=== PATIENT | female | born 1995 | race Caucasian/White ===

== ENCOUNTER 2017-07-07 17:22 | Emergency (ER) | payer OTHER ==
[2017-07-07 17:43] VITALS: BP 121/58
--- NOTE | 2017-07-07 18:40 | UC ---
Breast Complaint - HPI Summary HPI Summary: Pt presents with c/o firm, moveable mass in right breast. Pt reports that she was taking a shower two hours ago and felt a large, firm, moveable, non tender mass in right breast at 7 - 8 o'clock position. Pt denies any injury or FMH breast cancer. Pt is on BCP, denies sexual activity and is due to have menstrual cycle begin in 2 days. - History of Current Complaint Hx Obtained From: Patient Breast Chief Complaint: Right, Palpable Lump Timing: Constant Breast Pain Radiates To: Right Breast Pain Aggravating Factors: Palpation Breast Pain Alleviating Factors: Nothing Breast Associated Signs/Symptoms: Nodule/Mass - right side large, non tender moveable 7-8 o'clock position - Allergy/Home Medications Allergies/Adverse Reactions: Allergies Allergy/AdvReac Type Severity Reaction Status Date / Time Penicillins [PCN] Allergy Rash Verified 07/07/17 17:39 Home Medications: Home Medications Eth Estradiol/Drospirenone(NF) [Petra 28(NF)] 1 tab PO DAILY 07/07/17 [History Confirmed 07/07/17] PMH/Surg Hx/FS Hx/Imm Hx Previously Healthy: Yes - Surgical History Surgical History: None - Family History Known Family History: Positive: Cardiac Disease - Social History Occupation: Student Lives: Dormitory/Roommates Alcohol Use: None Substance Use Type: None Smoking Status (MU): Never Smoked Tobacco Have You Smoked in the Last Year: No Review of Systems Constitutional: Negative Skin: Negative - tender, firm moveable mass in rigth breast, Other Eyes: Negative ENT: Negative Respiratory: Negative Cardiovascular: Negative Gastrointestinal: Negative Genitourinary: Negative Motor: Negative Neurovascular: Negative Musculoskeletal: Negative Neurological: Negative Psychological: Negative Is Patient Immunocompromised?: No All Other Systems Reviewed And Are Negative: Yes Physical Exam Triage Information Reviewed: Yes Appearance: Well-Appearing Vital Signs: Initial Vital Signs Temp 98.5 F 07/07/17 17:40 Pulse 81 07/07/17 17:40 Resp 16 07/07/17 17:40 BP 121/58 07/07/17 17:40 Pulse Ox 100 07/07/17 17:40 Vital Signs Reviewed: Yes Eye Exam: Normal ENT Exam: Normal Dental Exam: Normal Neck exam: Normal Respiratory Exam: Normal Cardiovascular Exam: Normal Abdominal Exam: Normal Musculoskeletal Exam: Normal Neurological Exam: Normal Psychological Exam: Normal Skin Exam: Other - 4 cm X 2 cm moaveable mass in right breast, non tender, firm mass elongated shape, right breast, 7-8 o'clock position Breast Pain Course/Dx - Course Assessment/Plan: I discussed with the pt the need to follow up her PCP and she requested a local provider. I referred her to a [facility] surgeon as requested. - Differential Diagnoses Differential Diagnosis/HQI/PQRI: Breast Mass - Diagnoses Provider Diagnoses: Breast mass, right Is Visit Related: No Discharge - Discharge Plan Condition: Stable Disposition: HOME Patient Education Materials: Breast Mass (ED) Referrals: [facility] [Outside] Christoph Palmer [Medical Doctor] - Non Staff,Doctor [Primary Care Provider] - If Needed Additional Instructions: Please follow up with your pCP or return to clinic as needed. We have provided a referral to a [facility] provider as you have requested. Please follow up as soon as possible.
== END 2017-07-07 18:50 | disposition home or self-care (01) ==
LOC: UCCORT 17:22
DX: N63.10 Unspecified lump in the right breast, unspecified quadrant (principal); Z88.0 Allergy status to penicillin
CPT/HCPCS: 99201; G0463

== ENCOUNTER 2017-12-11 15:23 | Emergency (ER) | payer OTHER ==
[2017-12-11 15:55] VITALS: BP 130/58
--- NOTE | 2017-12-11 16:04 | UC ---
Respiratory Complaint HPI - HPI Summary HPI Summary: pt c/o a cough for 1 month. tx by irina kidd with cough medication without relief. while home on break, went to her pcp around 11/21/17. whom tx with nebulizer, inhaler and steroid which helped; however, continues to cough and now L side of ribs hurt. no f/c's or sob. +wheezing. completed the steroid and left the neb at home. denies calf pain or swelling. immunizations are utd. - History of Current Complaint Chief Complaint: UCRespiratory Stated Complaint: COUGH/LFT SIDE RIB AREA PAIN Time Seen by Provider: 12/11/17 15:57 Hx Obtained From: Patient Hx Last Menstrual Period: 11/16 Onset/Duration: Gradual Onset Timing: Constant Pain Intensity: 5 - Risk Factors Cardiac Risk Factors: Negative Pseudomonas Risk Factors: Negative Tuberculosis Risk Factors: Negative - Allergies/Home Medications Allergies/Adverse Reactions: Allergies Allergy/AdvReac Type Severity Reaction Status Date / Time Penicillins Allergy Rash Verified 12/11/17 15:43 Home Medications: Home Medications Ibuprofen TAB* [Motrin TAB* 400 MG] 400 mg PO ONCE PRN 12/11/17 [History Confirmed 12/11/17] PMH/Surg Hx/FS Hx/Imm Hx - Additional Past Medical History Additional PMH: Frequent bronchitis - Surgical History Surgical History: None - Family History Known Family History: Positive: Cardiac Disease - Social History Occupation: Student Lives: Dormitory/Roommates Alcohol Use: None Substance Use Type: None Smoking Status (MU): Never Smoked Tobacco Have You Smoked in the Last Year: No - Immunization History Vaccination Up to Date: Yes Review of Systems Constitutional: Negative Skin: Negative Eyes: Negative ENT: Negative Respiratory: Cough Cardiovascular: Negative Gastrointestinal: Negative Genitourinary: Negative Motor: Negative Neurovascular: Negative Musculoskeletal: Other: - L rib pain Neurological: Negative Psychological: Negative Is Patient Immunocompromised?: No All Other Systems Reviewed And Are Negative: Yes Physical Exam Triage Information Reviewed: Yes Appearance: Well-Appearing Vital Signs: Initial Vital Signs Temp 98.3 F 12/11/17 15:46 Pulse 73 12/11/17 15:46 Resp 18 12/11/17 15:46 BP 130/58 12/11/17 15:46 Pulse Ox 100 12/11/17 15:46 Eye Exam: Normal ENT Exam: Normal Neck: Positive: Supple, Nontender, No Lymphadenopathy Respiratory: Positive: Lungs clear, No respiratory distress, Decreased breath sounds - LLL, Other: - L chest wall tenderness. Cardiovascular: Positive: RRR, No Murmur Abdomen Description: Positive: Nontender, No Organomegaly, Soft Bowel Sounds: Positive: Present Musculoskeletal: Positive: ROM Intact, No Edema, Other: - no calf tenderness Neurological: Positive: Alert Psychological: Positive: Age Appropriate Behavior Skin Exam: Normal UC Diagnostic Evaluation - Laboratory O2 Sat by Pulse Oximetry: 100 - Radiology Xray Interpretation: No Acute Changes Radiology Interpretation Completed By: Radiologist Re-Evaluation - Re-Evaluation Second Eval Re-Evaluation Time: 17:04 Change: Improved - much improved aeration, pt notes easier to breathe and no cough with deep breathing. Respiratory Course/Dx - Course Course Of Treatment: non toxic, not hypoxic, cxr=unremarkable. pt has access to neb thus will supply her with albuterol and cover for presumptive bacterial. no concern for PE. pt immunized and 1 month hx but pertussis is still possible. the zpak will cover this. L rib pain c/w musculoskeletal. - Differential Dx/Diagnosis Provider Diagnoses: Bronchospasm. Cough. Discharge - Sign-Out/Discharge Documenting (check all that apply): Discharge - Discharge Plan Condition: Stable Disposition: HOME Prescriptions: Albuterol 2.5MG/3ML (0.083%)* [Ventolin 2.5 MG/3 ML NEB.PRINCE*] 2.5 mg INH Q6H PRN 30 Days #1 box PRN Reason: Sob/Wheezing Azithromycin TAB* [Zithromax TAB (Z-VIKKI) 250 mg #6 tabs] 2 tab PO .TODAY, THEN 1 DAILY #1 vikki Referrals: Non Staff,Doctor [Primary Care Provider] - Additional Instructions: USE THE INHALER OR THE NEB BUT NOT BOTH AT THE SAME TIME. FOLLOW UP WITH THE [facility] IN 5-7 DAYS FOR A RECHECK AND SOONER IF WORSE. - Billing Disposition and Condition Condition: STABLE Disposition: HOME
[2017-12-11] MEDS ORDERED: Albuterol 2.5 MG/3 ML NEB.SOL* (0.083%) INH ONE (16:05)
--- NOTE | 2017-12-11 17:06 | RAD ---
INDICATION: Left chest pain and cough x1 month COMPARISON: None TECHNIQUE: PA and lateral views of the chest were obtained. FINDINGS: The heart and mediastinum are normal in size and contour. The lungs are grossly clear. There is no evidence of large pleural effusion. Visualized bones are normal for the patient's age. There is no radiographic evidence of free air beneath the diaphragm IMPRESSION: No radiographic evidence of acute cardiopulmonary disease.
== END 2017-12-11 17:44 | disposition home or self-care (01) ==
LOC: UCCORT 15:23
DX: R05 Cough (principal); J98.01 Acute bronchospasm; Z88.0 Allergy status to penicillin
CPT/HCPCS: 71046; 99212; G0463